=== PATIENT | male | born 1990 | race Caucasian/White ===

== ENCOUNTER 2024-10-25 21:53 | Inpatient (IN) | payer MEDICAID, OTHER ==
[~2024-10-25] VITALS: Ht 195.6 cm; Wt 100.0 kg
[2024-10-26] MEDS ORDERED: VANCOMYCIN 1GM 200ML H20 (PEG) 200 ML IV ONE (00:05)
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
[2024-10-26] MEDS: morphine 4 MG/ML inj SYRINge IV ONE (00:26)
[2024-10-26] MEDS: ondansetron/PF 4mg/2ml inj IV ONE (00:26)
[2024-10-26] MEDS: vancomycin/NS 1 GM ADD-VANTAGE 250 ML IV ONE (00:26)
[2024-10-26] MEDS: normal saline 1000ML IV soln IVB ONE (00:34)
[2024-10-26 00:42] LABS: BASOPHILS # (AUTO) 0.1 X10'3 (0-0.2); BASOPHILS % (AUTO) 0.5 % (0-1); EOSINOPHILS # (AUTO) 0.3 X10'3 (0-0.9); EOSINOPHILS % (AUTO) 2.1 % (0-6); HEMATOCRIT 38.9 % (42.0-52.0); HEMOGLOBIN 13.3 g/dl (14.0-17.9); LYMPHOCYTES % (AUTO) 32.2 % (21-51); MEAN CORPUSCULAR HEMOGLOBIN 30.7 PG (27.0-31.0); MEAN CORPUSCULAR HGB CONC 34.1 g/dL (33.0-36.5); MEAN CORPUSCULAR VOLUME 89.9 FL (78-98); MEAN PLATELET VOLUME 6.3 FL (7.4-10.4); MONOCYTES # (AUTO) 1.5 X10'3 (0-0.9); MONOCYTES % (AUTO) 12.4 % (2-12); NEUTROPHILS # (AUTO) 6.6 X10'3 (1.8-7.7); NEUTROPHILS % (AUTO) 52.8 % (42-75); PLATELET COUNT 349 X10'3 (140-440); RED BLOOD COUNT 4.33 X10'6 (4.70-6.10); RED CELL DISTRIBUTION WIDTH 13.2 % (11.5-14.5); WHITE BLOOD COUNT 12.4 X10'3 (4.5-11.0)
[2024-10-26 00:56] LABS: ALANINE AMINOTRANSFERASE 23 U/L (12-78); ALBUMIN 3.4 G/DL (3.4-5.0); ALBUMIN/GLOBULIN RATIO 0.9 (1.1-1.5); ALKALINE PHOSPHATASE 85 IU/L (46-116); ANION GAP 7 (8-16); ASPARTATE AMINO TRANSFERASE 20 U/L (10-37); BILIRUBIN,TOTAL 1.5 MG/DL (0.1-1.0); BLOOD UREA NITROGEN 10 MG/DL (7-18); BUN/CREATININE RATIO 9.3 (10.0-20.0); C-REACTIVE PROTEIN 6.85 MG/DL (0.0-0.5); CALCIUM 8.4 MG/DL (8.5-10.1); CHLORIDE 104 MMOL/L (99-107); CREATINE KINASE 78 U/L (39-308); CREATININE 1.07 MG/DL (0.60-1.10); GLUCOSE 86 MG/DL (70-104); MAGNESIUM 1.8 MG/DL (1.5-2.4); POTASSIUM 3.9 MMOL/L (3.5-5.1); SODIUM 141 MMOL/L (135-145); TOTAL CARBON DIOXIDE 29.7 MMOL/L (24-32); eCRCL 123 ML/MIN; eGFR 79 ML/MIN
[2024-10-26] MEDS: piperacillin/tazo 4.5gm/100ml 100 ML IV ONE (02:10)
[2024-10-26] MEDS ORDERED: potassium Cl 20 mEq SR tablet PO PRN ×2 (03:05)
[2024-10-26] MEDS ORDERED: ondansetron/PF 4mg/2ml inj IV PRN (03:05)
[2024-10-26] MEDS ORDERED: morphine 2 MG/ML inj. syringe IV PRN (03:05)
[2024-10-26] MEDS ORDERED: acetaminophen 325mg tablet PO PRN (03:05)
[2024-10-26] MEDS ORDERED: HYDROcodone/acetaminophen 5mg/325mg tablet PO PRN (03:05)
[2024-10-26] MEDS ORDERED: mag hydrox/Alum hydrox/simeth 30ml oral suspension PO PRN (03:05)
[2024-10-26] MEDS ORDERED: magnesium sulf-water 4G/100mL 100 ML IV PRN (03:05)
[2024-10-26] MEDS ORDERED: magnesium hydroxide 30ml (MOM) UD suspension PO PRN (03:05)
[2024-10-26] MEDS ORDERED: magnesium sulf-water 2g/50mL 50 ML IV PRN (03:05)
[2024-10-26] MEDS ORDERED: magnesium Cl slow-release 64mg tablet PO PRN (03:05)
[2024-10-26] MEDS ORDERED: potassium Cl 40MEQ/1/2NS 520ml 520 ML IV PRN (03:05)
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
[2024-10-26] MEDS: morphine 2 MG/ML inj. syringe IV PRN (03:15)
[2024-10-26 03:31] LABS: HEMOGLOBIN A1C 5.2 % (4.5-6.2)
[2024-10-26] MEDS: lactobacillus rhamnosus 10,000 MMU CELLS/CAPSULE PO SCH (04:00)
[2024-10-26] MEDS: normal saline 1000ml 1,000 ML IV SCH (04:03)
[2024-10-26 06:00] VITALS: BP 118/56; PULSE 65; RESP 18; TEMP 97.5; O2SAT 99
[2024-10-26] MEDS: HYDROcodone/acetaminophen 10/325mg tab PO PRN (06:41)
[2024-10-26 08:00] VITALS: BP 118/56; PULSE 65; RESP 18; TEMP 97.5; O2SAT 99
[2024-10-26] MEDS: docusate sod 100mg capsule PO SCH (08:00)
[2024-10-26] MEDS: K and/or MAG REPLACEMENT MC SCH (08:00)
[2024-10-26] MEDS ORDERED: vancomycin/NS 1 GM ADD-VANTAGE 250 ML IV SCH (08:00)
[2024-10-26] MEDS: vancomycin/NS 1 GM ADD-VANTAGE 250 ML IV SCH (08:29)
[2024-10-26] MEDS: piperacillin/tazo 3.375gm/50ml 50 ML IV SCH (08:29)
[2024-10-26 10:00] VITALS: BP 113/65; PULSE 56; RESP 19; TEMP 97.8; O2SAT 94
[2024-10-26] MEDS ORDERED: HYDROmorphone inj. 0.5 MG/0.5 ML DISP.SYRIN IV PRN (11:05)
[2024-10-26] MEDS: HYDROmorphone 1 mg/ml syringe IV PRN (12:10)
--- NOTE | 2024-10-26 13:35 | RADIOLOGY REPORT ---
CLINICAL HISTORY: 34 years old, Male; Right lower extremity cellulitis. TECHNIQUE: Multi sequence multi planar MRI images of the right thigh were obtained without IV contra st. COMPARISON: None FINDINGS: There is diffuse subcutaneous edema and scattered fluid throughout the right thigh, most p rominent of the level of the mid to distal thigh, possibly correlating with reported clinical history of cellulitis. No organized fluid collection identified to suggest abscess. The fluid courses along the superficial fascial planes of the right thigh musculature with no extension into the deep fascial planes and no signal abnormality identified in the musculature to suggest myositis. Normal marrow si gnal in the visualized portions of the right femur no evidence of osteomyelitis. IMPRESSION: 1. Subcutaneous edema and fluid in the right thigh, likely correlating with reported clinical history of cellulitis. 2. No organized fluid collection to suggest abscess. No evidence for myositis. No evidence for osteom yelitis.
[2024-10-26] MEDS: JUVEN Smoothie Arginine/Glut./Ca2+Bmb (Juven 19.3pkt) 240ml cup PO SCH (17:30)
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
[2024-10-26 18:00] VITALS: BP 118/63; PULSE 86; RESP 18; TEMP 98.7; O2SAT 96
[2024-10-26 20:00] VITALS: RESP 18; O2SAT 96
[2024-10-26] MEDS ORDERED: lactobacillus rhamnosus 10,000 MMU CELLS/CAPSULE PO SCH (20:00)
[2024-10-26 22:00] VITALS: BP 105/65; PULSE 90; RESP 20; TEMP 98.6; O2SAT 96
[2024-10-26] MEDS: VANCOMYCIN LEVEL IV ONE (23:30)
[2024-10-27 05:11] LABS: BASOPHILS % (AUTO) 0.6 % (0-1); EOSINOPHILS # (AUTO) 0.2 X10'3 (0-0.9); EOSINOPHILS % (AUTO) 2.6 % (0-6); HEMATOCRIT 35.6 % (42.0-52.0); LYMPHOCYTES # (AUTO) 3.6 X10'3 (1.1-4.8); LYMPHOCYTES % (AUTO) 46.5 % (21-51); MEAN CORPUSCULAR HEMOGLOBIN 30.4 PG (27.0-31.0); MEAN CORPUSCULAR HGB CONC 33.6 g/dL (33.0-36.5); MEAN CORPUSCULAR VOLUME 90.5 FL (78-98); MEAN PLATELET VOLUME 6.2 FL (7.4-10.4); MONOCYTES # (AUTO) 0.9 X10'3 (0-0.9); MONOCYTES % (AUTO) 11.1 % (2-12); NEUTROPHILS # (AUTO) 3.1 X10'3 (1.8-7.7); NEUTROPHILS % (AUTO) 39.2 % (42-75); PLATELET COUNT 339 X10'3 (140-440); RED BLOOD COUNT 3.94 X10'6 (4.70-6.10); RED CELL DISTRIBUTION WIDTH 13.2 % (11.5-14.5); WHITE BLOOD COUNT 7.8 X10'3 (4.5-11.0)
[2024-10-27 05:19] LABS: ALANINE AMINOTRANSFERASE 23 U/L (12-78); ALBUMIN 2.6 G/DL (3.4-5.0); ALBUMIN/GLOBULIN RATIO 0.8 (1.1-1.5); ALKALINE PHOSPHATASE 78 IU/L (46-116); ANION GAP 8 (8-16); ASPARTATE AMINO TRANSFERASE 15 U/L (10-37); BILIRUBIN,TOTAL 0.9 MG/DL (0.1-1.0); BLOOD UREA NITROGEN 7 MG/DL (7-18); CALCIUM 8.2 MG/DL (8.5-10.1); CHLORIDE 108 MMOL/L (99-107); CHOL/HDL RATIO 3.3 (0.00-4.99); CHOLESTEROL 129 MG/DL (0-200); CREATININE 0.88 MG/DL (0.60-1.10); GLUCOSE 103 MG/DL (70-104); HDL CHOLESTEROL 39 MG/DL (35-60); LDL CHOLESTEROL 76 MG/DL (50-100); MAGNESIUM 1.7 MG/DL (1.5-2.4); POTASSIUM 4.1 MMOL/L (3.5-5.1); SODIUM 145 MMOL/L (135-145); TOTAL CARBON DIOXIDE 29.2 MMOL/L (24-32); TRIGLYCERIDES 53 MG/DL (20-135); eCRCL 149 ML/MIN; eGFR > 90 ML/MIN
[2024-10-27] MEDS: pantoprazole 40mg Tablet.DR PO SCH (07:15)
[2024-10-27 08:00] VITALS: RESP 16; O2SAT 98
[2024-10-27] MEDS: LIDOcaine 4% (40 mg/ml) topical solution 50ml TP ONE ×2 (08:55→09:50)
[2024-10-27 09:25] VITALS: BP 116/61; PULSE 61; RESP 18; TEMP 97.9; O2SAT 98
[2024-10-27 11:51] VITALS: BP 113/61; PULSE 62; RESP 14; TEMP 97.3; O2SAT 96
[2024-10-27] MEDS: HYDROmorphone 1 mg/ml syringe IV ONE (12:31)
[2024-10-27] MEDS: VANCOmycin 1250MG/NS 250ml Bag 250 ML IV SCH (15:17)
[2024-10-27 18:00] VITALS: BP 124/71; PULSE 55; RESP 14; TEMP 98; O2SAT 97
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
[2024-10-27 20:00] VITALS: RESP 14; O2SAT 97
[2024-10-27] MEDS: HYDROmorphone 1 mg/ml syringe IV PRN (20:26)
[2024-10-27 22:00] VITALS: BP 131/64; PULSE 71; RESP 18; TEMP 98.6; O2SAT 96
[2024-10-27] MEDS: piperacillin/tazo 3.375gm/50ml 50 ML IV ONE (23:51)
[2024-10-28 06:00] VITALS: BP 120/71; PULSE 69; RESP 18; TEMP 98.3; O2SAT 97
[2024-10-28 06:08] LABS: BASOPHILS % (AUTO) 0.7 % (0-1); EOSINOPHILS # (AUTO) 0.2 X10'3 (0-0.9); EOSINOPHILS % (AUTO) 3.1 % (0-6); HEMATOCRIT 37.4 % (42.0-52.0); HEMOGLOBIN 12.6 g/dl (14.0-17.9); LYMPHOCYTES # (AUTO) 2.3 X10'3 (1.1-4.8); LYMPHOCYTES % (AUTO) 35.6 % (21-51); MEAN CORPUSCULAR HEMOGLOBIN 30.3 PG (27.0-31.0); MEAN CORPUSCULAR HGB CONC 33.7 g/dL (33.0-36.5); MEAN CORPUSCULAR VOLUME 89.9 FL (78-98); MEAN PLATELET VOLUME 6.4 FL (7.4-10.4); MONOCYTES # (AUTO) 0.6 X10'3 (0-0.9); MONOCYTES % (AUTO) 9.5 % (2-12); NEUTROPHILS # (AUTO) 3.3 X10'3 (1.8-7.7); NEUTROPHILS % (AUTO) 51.1 % (42-75); PLATELET COUNT 386 X10'3 (140-440); RED BLOOD COUNT 4.16 X10'6 (4.70-6.10); RED CELL DISTRIBUTION WIDTH 13.1 % (11.5-14.5); WHITE BLOOD COUNT 6.4 X10'3 (4.5-11.0)
[2024-10-28 06:39] LABS: ALANINE AMINOTRANSFERASE 24 U/L (12-78); ALBUMIN 2.8 G/DL (3.4-5.0); ALBUMIN/GLOBULIN RATIO 0.8 (1.1-1.5); ALKALINE PHOSPHATASE 85 IU/L (46-116); ANION GAP 10 (8-16); ASPARTATE AMINO TRANSFERASE 17 U/L (10-37); BILIRUBIN,TOTAL 0.5 MG/DL (0.1-1.0); BLOOD UREA NITROGEN 11 MG/DL (7-18); BUN/CREATININE RATIO 10.4 (10.0-20.0); CALCIUM 8.5 MG/DL (8.5-10.1); CHLORIDE 105 MMOL/L (99-107); CREATININE 1.06 MG/DL (0.60-1.10); GLUCOSE 98 MG/DL (70-104); MAGNESIUM 1.9 MG/DL (1.5-2.4); SODIUM 145 MMOL/L (135-145); TOTAL CARBON DIOXIDE 29.8 MMOL/L (24-32); TOTAL PROTEIN 6.4 G/DL (6.4-8.2); eCRCL 124 ML/MIN; eGFR 80 ML/MIN
[2024-10-28 10:15] VITALS: BP 103/56; PULSE 55; RESP 20; TEMP 97.8; O2SAT 94
[2024-10-28] MEDS: oxyCODONE/APAP 10/325mg tablet PO PRN (11:34)
[2024-10-28] MEDS ORDERED: OXYC1TAB17 PO (14:15)
[2024-10-28] MEDS ORDERED: AMOX-580 PO (14:15)
[2024-10-28] MEDS: VANCOMYCIN LEVEL IV ONE (15:03)
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
== END 2024-10-28 15:42 | disposition home or self-care (01) | DRG 872 ==
LOC: ER 21:53 → ED HOLD 10-26 03:09 → ORTHO 4S 10-26 07:25 → SUR 3N 10-27 11:08
PROVIDERS: ADMIT Surgery; ATTEND Family Medicine
DX: A41.9 Sepsis, unspecified organism (principal); L03.115 Cellulitis of right lower limb; T24.301A Burn of third degree of unspecified site of right lower limb, except ankle and foot, initial encounter; X10.0XXA Contact with hot drinks, initial encounter; F32.A Depression, unspecified; F41.9 Anxiety disorder, unspecified; Y93.89 Activity, other specified; Y92.89 Other specified places as the place of occurrence of the external cause; Y99.8 Other external cause status; Z88.8 Allergy status to other drugs, medicaments and biological substances
CPT/HCPCS: 36415; 73721; 80053; 80061; 80202; 82550; 83036; 83605; 83735; 84145; 85025; 85651; 86140; 87040; 87081; 99285; A6222; A6223; A6253; A6446; A6449; G0378; J1171; J2270; J2405; J2543; J3370; J7030